=== PATIENT | male | born 1995 | race Caucasian/White ===

== ENCOUNTER 2023-08-03 10:13 | Emergency (ER) | payer OTHER ==
[~2023-08-03] VITALS: Ht 182.9 cm; Wt 123.2 kg
[2023-08-03 10:14] VITALS: BP 133/61; TEMP 98.5; O2SAT 96
== END 2023-08-03 13:30 | disposition home or self-care (01) ==
LOC: M ED 10:13 → EDSEX 10:13 → M ED 13:30
DX: S06.0X0A Concussion without loss of consciousness, initial encounter (principal); W22.8XXA Striking against or struck by other objects, initial encounter; Y93.23 Activity, snow (alpine) (downhill) skiing, snowboarding, sledding, tobogganing and snow tubing; Y92.9 Unspecified place or not applicable; Y99.8 Other external cause status

== ENCOUNTER 2025-02-19 00:15 | Emergency (ER) | payer OTHER ==
[~2025-02-19] VITALS: Ht 182.9 cm; Wt 104.5 kg
[2025-02-19 00:18] VITALS: TEMP 97.2
[2025-02-19] MEDS: MAG SULF 1GM/100ML (MAG RUN) 1 GM in IV 1 EA IV ONE (01:04)
[2025-02-19] MEDS: ACETAMINOPHEN *IV* 1,000 MG in IV 1 EA IV ONE (01:04)
[2025-02-19] MEDS: dexAMETHasone 4 MG/ML 1 ML VIAL IV ONE (01:04)
[2025-02-19] MEDS: NS (Normal Saline) 0.9% 1,000 ML IV ONE ×2 (01:04→02:11)
[2025-02-19] MEDS ORDERED: KETOROLAC 30 MG/ML 1 ML VIAL IV ONE (02:05)
[2025-02-19] MEDS ORDERED: VALI5TAB PO (02:23)
[2025-02-19] MEDS ORDERED: FIOR1CAP PO (02:23)
[2025-02-19 03:06] VITALS: BP 119/89; O2SAT 98
== END 2025-02-19 03:07 | disposition home or self-care (01) ==
LOC: M ED 00:15
DX: G43.909 Migraine, unspecified, not intractable, without status migrainosus (principal); M62.838 Other muscle spasm; Z79.1 Long term (current) use of non-steroidal anti-inflammatories (NSAID); Z79.899 Other long term (current) drug therapy
CPT/HCPCS: 70450; 72125; 96374; 96375; 99284; J0131; J1100; J2765; J3475